=== PATIENT | female | born 1960 | race Caucasian/White ===

== ENCOUNTER 2022-11-07 15:00 | Emergency (ER) | payer OTHER ==
--- NOTE | 2022-11-07 15:28 | ED Physician Documentation ---
History of Present Illness - Stated complaint Stated Complaint: NAUSEA,BACK/NECK PX - Chief complaint Chief Complaint: Cardiac - History obtained from History obtained from: Patient - History of Present Illness Timing: Today Pain level max: 5 Pain level now: 2 - Additonal information Additional information: Patient is a 62-year-old female with a myriad of symptoms today. She states that she has had chronic neck pain for 4 to 5 years, but over the past few days it has been more on the left side than the usual right side. She states that she has tinnitus as well but has been having tinnitus more on the left than the usual right. She states that she also will hear a whooshing sound in her ears occasionally. She states that today she had palpitations, these lasted for a few seconds at a time, but were more persistent than usual. She states she has had these since menopause. She also had about 2 hours of nausea today. Nothing made it better or worse. She also states that she has mid back pain near where her bra strap would be. Denies any numbness or tingling in the legs that is different than her usual. 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 Denies any cardiac history. No abdominal surgeries in the past. No fevers. She did feel chilled when she had nausea earlier today. No cough. No vomiting. She states that she had mild diarrhea earlier today. Patient states that she does not currently have a primary care provider. She is on no medications. Denies any alcohol, tobacco, vaping or drug use. Review of Systems Constitutional: denies: Fever Nose: denies: Rhinorrhea / runny nose, Congestion Cardiac: reports: Palpitations. denies: Chest pain / pressure Respiratory: denies: Dyspnea, Cough, Hemoptysis, Wheezing GI: denies: Vomiting, Diarrhea Skin: denies: Rash Musculoskeletal: reports: Other (Chronic left hip pain, unchanged). denies: Neck pain, Back pain Neurologic: denies: Headache PD PAST MEDICAL HISTORY - Past Medical History Past Medical History: No - Past Surgical History Past Surgical History: No - Present Medications Home Medications: Ambulatory Orders Medication Instructions Recorded Confirmed No Known Home Medications 11/07/22 11/07/22 - Allergies Allergies/Adverse Reactions: Allergies Allergy/AdvReac Type Severity Reaction Status Date / Time No Known Drug Allergies Allergy Verified 11/07/22 15:12 - Living Situation Living Arrangement: reports: At home - Social History Does the pt smoke?: No Does the pt drink ETOH?: No Does the pt have substance abuse?: No - Family History Family history: reports: Non contributory PD ED PE NORMAL - Vitals Vital signs reviewed: Yes - General General: Alert and oriented X 3, No acute distress, Well developed/nourished - HEENT HEENT: Atraumatic, PERRL, Ears normal, Moist mucous membranes, Pharynx benign - Neck Neck: Supple, no meningeal sign, No JVD, No bruit - Cardiac Cardiac: RRR, Strong equal pulses - Respiratory Respiratory: No respiratory distress, Clear bilaterally - Abdomen Abdomen: Soft, Non tender, Non distended - Back Back: No CVA TTP, No spinal TTP - Derm Derm: Warm and dry - Extremities Extremities: No deformity, No edema, No calf tenderness / cord - Neuro Neuro: Alert and oriented X 3, 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 Relevant findings are: Rate: Rate (enter#) (56) Rhythm: NSR [place]: Normal Intervals: Normal [place] QRS: Normal Ischemia: Normal ST segments - Labs Labs: Laboratory Tests 11/07/22 11/07/22 11/07/22 15:44 15:44 15:44 WBC 6.9 RBC 4.41 Hgb 13.7 Hct 39.8 MCV 90.2 MCH 31.1 H MCHC 34.4 RDW 12.1 Plt Count 293 MPV 9.3 Neut # (Auto) 4.6 Lymph # (Auto) 1.7 [place] # (Auto) 0.4 Eos # (Auto) 0.1 Baso # (Auto) 0.1 Absolute Nucleated RBC 0.00 Nucleated RBC % 0.0 Sodium 137 Potassium 3.9 Chloride 105 Carbon Dioxide 24 Anion Gap 8.0 BUN 12 Creatinine 0.8 Estimated GFR (MDRD) 73 L Glucose 100 Calcium 9.1 Total Bilirubin 0.8 AST 26 ALT 21 Alkaline Phosphatase 62 Troponin I High Sens < 2.3 L Total Protein 7.5 Albumin 4.2 Globulin 3.3 Albumin/Globulin Ratio 1.3 Lipase 28 - Rads (name of study) cxr Relevant Findings:: Final report received, See rad report CT angio chest Relevant Findings:: Final report received, See rad report ct angio abd/pel Relevant Findings:: Final report received, See rad report PD Medical Decision Making - ED course Complexity details: reviewed results, re-evaluated patient, considered differential (No ST elevation [place], no aortic dissection, no PE, no tension pneumothorax, no aortic aneurysm), d/w patient ED course: 62-year-old female presents to the emergency department with multiple complaints. No acute laboratory abnormalities. High-sensitivity troponin is negative. She did not have any chest pain necessarily, but was having palpitations. No arrhythmias on telemetry here. Given her palpitations, mid back pain and neck pain, a CT angiogram was performed to rule out dissection. There is no evidence of aortic dissection. Patient is currently asymptomatic in the emergency department and symptoms have resolved. We will have her follow-up with her doctor for further care. A list of local primary care providers was given to the patient. Patient is well-appearing, nontoxic. Afebrile. Patient counseled regarding signs and symptoms for which I believe and urgent re- evaluation would be necessary. Patient with good understanding of and agreement to plan and is comfortable going home at this time This document was made in part using voice recognition software. While efforts are made to proofread this document, sound alike and grammatical errors may occur. Departure - Departure Disposition: Home, Self Care Clinical Impression: Palpitations, Neck pain Back pain Qualifiers: Back pain location: back pain in unspecified location Chronicity: acute Back pain laterality: unspecified Qualified Code(s): M54.9 - Dorsalgia, unspecified Tinnitus Qualifiers: Laterality: unspecified laterality Qualified Code(s): H93.19 - Tinnitus, u nspecified ear Condition: Good Instructions: Tinnitus, ED Chest Pain Atypical Unkn Cause Follow-Up: [facility] [Provider Group] [facility] [Provider Group] [facility] [Provider Group] - Within 1 week Comments: Please follow-up with your doctor for further care. Please return if you worsen. I provided a list of clinics for you. Your laboratory testing, CT angiogram of the chest, abdomen and pelvis do not show any acute abnormalities. Your EKG is normal as well. Discharge Date/Time: 11/07/22 18:07
[2022-11-07 15:51] LABS: BASOPHILS # (AUTO) 0.1 10^3/uL (0.0-0.1); BASOPHILS % (AUTO) 0.7 %; EOSINOPHILS # (AUTO) 0.1 10^3/uL (0.0-0.7); EOSINOPHILS % (AUTO) 1.7 %; HCT - HEMATOCRIT 39.8 % (37.0-47.0); HGB - HEMOGLOBIN 13.7 g/dL (12.0-16.0); LYMPHOCYTES # (AUTO) 1.7 10^3/uL (1.5-3.5); LYMPHOCYTES % (AUTO) 24.7 %; MEAN CORPUSCULAR HEMOGLOBIN 31.1 pg (27.0-31.0); MEAN CORPUSCULAR HGB CONC 34.4 g/dL (32.0-36.0); MEAN CORPUSCULAR VOLUME 90.2 fL (81.0-99.0); MEAN PLATELET VOLUME 9.3 fL (7.9-10.8); MONOCYTES # (AUTO) 0.4 10^3/uL (0.0-1.0); MONOCYTES % (AUTO) 5.7 %; NEUTROPHILS # (AUTO) 4.6 10^3/uL (1.5-6.6); NEUTROPHILS % (AUTO) 66.9 %; PLT - PLATELET COUNT 293 10^3/uL (130-450); RED BLOOD COUNT 4.41 10^6/uL (4.20-5.40); RED CELL DISTRIBUTION WIDTH 12.1 % (12.0-15.0); WHITE BLOOD COUNT 6.9 x10^3/uL (4.8-10.8)
[2022-11-07 16:07] LABS: ALBUMIN 4.2 g/dL (3.2-5.5); ALBUMIN/GLOBULIN RATIO 1.3 (1.0-2.2); BILIRUBIN,TOTAL 0.8 mg/dL (0.2-1.0); CALCIUM 9.1 mg/dL (8.5-10.3); CREATININE 0.8 mg/dL (0.4-1.0); POTASSIUM 3.9 mmol/L (3.5-5.0); TOTAL PROTEIN 7.5 g/dL (6.7-8.2)
[2022-11-07] MEDS ORDERED: iohexoL-300 100 ML VIAL ONE (16:21)
--- NOTE | 2022-11-07 16:30 | XRAY Report ---
PROCEDURE: Chest 1 View X-Ray INDICATIONS: Chest Pain TECHNIQUE: One view of the chest was acquired. COMPARISON: None. FINDINGS: Surgical changes and devices: None. Lungs and pleura: No dense consolidation or pleural effusion. Mediastinum: Normal heart size. Bones and chest wall: No acute or suspicious osseous finding. IMPRESSION: No acute radiographic abnormality. Reviewed by: Harvey Garzon MD on 11/07/2022 4:29 PM PDT Approved by: Harvey Garzon MD on 11/07/2022 4:29 PM PDT Station ID: [id number]
[2022-11-07] MEDS ORDERED: iohexoL-300 100 ML VIAL IVP ONE (16:48)
--- NOTE | 2022-11-07 17:09 | CT Report ---
PROCEDURE: CT angiogram abdomen with contrast INDICATIONS: chest/back pain TECHNIQUE: Helical axial CT of the abdomen was obtained during the arterial phase of an intravenous i njection. COMPARISON: None. FINDINGS: Coarse, caliber and enhancement of the abdominal aorta is unremarkable without evidence of aneurysm o r dissection. Arterial phase appearance of the liver, spleen and both kidneys unremarkable. Adrenal g lands, pancreas gallbladder likewise unremarkable. Distribution and caliber the bowel loops in the ab domen normal. Normal retroperitoneum. IMPRESSION: No evidence of abdominal aortic aneurysm or dissection. Reviewed by: Elgin Villarreal MD on 11/07/2022 4:08 PM TRICIA Approved by: Elgin Villarreal MD on 11/07/2022 4:08 PM TRICIA Station ID: [id number]
--- NOTE | 2022-11-07 17:24 | CT Report ---
PROCEDURE: CT chest angiogram with contrast. INDICATIONS: chest/back pain CONTRAST: 80mL Omni 300 TECHNIQUE: Helical axial CT of the chest was obtained during the arterial phase of intravenous contrast injectio n. For radiation dose reduction, the following was used: automated exposure control, adjustment of mA and/or kV according to patient size. COMPARISON: None FINDINGS: Image quality: Excellent. Large vessels: No filling defects within the opacified pulmonary arteries, accounting for motion and contrast timing. No evidence of acute aortic syndrome or aortic aneurysm. Lungs and pleura: No consolidation. No pleural effusions. No pneumothorax. No suspicious pulmonary n odules which require follow up. Mediastinum: Heart size is normal. No pericardial effusion. No large vessel abnormality. No mediastin al adenopathy by size criteria. Chest wall and lower neck: Thyroid is unremarkable. No axillary or supraclavicular adenopathy by size . Bones: No aggressive osseous abnormality. 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 IMPRESSION: Unremarkable CT chest angiogram. No evidence of aortic aneurysm or dissection Reviewed by: Elgin Villarreal MD on 11/07/2022 4:23 PM AKDT Approved by: Elgin Villarreal MD on 11/07/2022 4:23 PM AKDT Station ID: [id number]
[2022-11-07 18:11] VITALS: BP 133/78
== END 2022-11-07 18:07 | disposition home or self-care (01) ==
LOC: ED 15:00
DX: R00.2 Palpitations (principal); M54.2 Cervicalgia; M54.9 Dorsalgia, unspecified
CPT/HCPCS: 36415; 71045; 71275; 74175; 80053; 83690; 84484; 85025; 93005; 99283; 99284; Q9967

== ENCOUNTER 2023-05-17 10:41 | Outpatient (CLI) | payer OTHER ==
--- NOTE | 2023-05-17 12:51 | XRAY Report ---
PROCEDURE: Shoulder 2+V LT INDICATIONS: PAIN IN LEFT SHOULDER TECHNIQUE: 3 views of the shoulder were acquired. COMPARISON: None. FINDINGS: Bones: No fractures or dislocations. Mild acromioclavicular joint degeneration. No suspicious bony l esions. Visualized ribs appear intact. Soft tissues: No suspicious soft tissue calcifications. The visualized lungs are within normal limi ts. IMPRESSION: No acute bony abnormality. Mild acromioclavicular joint degeneration. Reviewed by: Sudhir Thapa MD on 05/17/2023 12:49 PM PST Approved by: Sudhir Thapa MD on 05/17/2023 12:49 PM PST Station ID: [id number]
== END 2023-05-17 10:42 | disposition home or self-care (01) ==
LOC: DI.S 10:41
PROVIDERS: ATTEND Physician Assistant Medical
DX: M19.012 Primary osteoarthritis, left shoulder (principal)